=== PATIENT | male | born 1940 | race Caucasian/White ===

== ENCOUNTER → 2024-12-27 10:31 | Outpatient (REF) | payer MEDICARE, OTHER, SELFPAY | LOC: RCS 10:31 | PROVIDERS: ATTENDING PHYSICIAN Internal Medicine Cardiovascular Disease; FAMILY PHYSICIAN Family Medicine | DX: I35.0 Nonrheumatic aortic (valve) stenosis (principal); I25.118 Atherosclerotic heart disease of native coronary artery with other forms of angina pectoris; I34.2 Nonrheumatic mitral (valve) stenosis | CPT/HCPCS: 93306 ==